=== PATIENT | female | born 1950 | race Caucasian/White ===

== ENCOUNTER → 2017-01-02 | Outpatient (CLI) | payer MEDICARE, BC ==
[~2017-01-02] MED LIST: ESTR.3
--- NOTE | 2017-01-04 12:40 | RSPPFT ---
DATE OF PROCEDURE: 01/02/17 COMMENTS: Spirometry with FVC of 3.0, FEV1 of 2.2, FEV1/FVC ratio at 74%. A positive but non-significant response to acutely inhaled bronchodilator noted. Slow vital capacity is 100% of predicted. TLC is 100%. Diffusion capacity is 73% of predicted and normal when corrected for alveolar volume. IMPRESSION: 1. Moderate airways obstruction. 2. Non-significant response to acutely inhaled bronchodilator. 3. Mild reduction in diffusion capacity.
== END ==
LOC: HRSP 10:29
PROVIDERS: ATTEND Internal Medicine Cardiovascular Disease
DX: R06.02 Shortness of breath (principal)
CPT/HCPCS: 94060; 94726; 94729

== ENCOUNTER → 2017-04-28 | Outpatient (CLI) | payer MEDICARE, BC ==
--- NOTE | 2017-05-01 12:57 | CARDEX ---
CARDIOPULMONARY EXERCISE REPORT Ms. Edmond performed a maximal pulmonary stress test utilizing a step-exercise protocol monitoring several cardiopulmonary parameters including gas exchange. Her overall work capacity is normal at 99%. Her VO2 max was 99% of predicted and with an excellent effort, she achieved an "R" value of 1.06. Her ventilatory parameters were normal. The O2 Saturation did not fall significantly and her respiratory reserve was 48%, certainly adequate. She did develop dyspnea during this study, not unexpected given the work that she completed. Her cardiovascular response was also normal. Her blood pressure at rest was 120/70 and judith to 170/65 and 5-minutes post-exercise was 130/70. Her end-tidal CO2 response to exercise was very normal with a rise of 7.8 with normal being greater than 4. She achieved 85% of her predicted maximum heart rate and her peak O2 pulse, an indirect indicator of stroke volume, was normal. She had no chest pain or light-headedness. IMPRESSION: In summary, Ms. Edmond has a normal pulmonary stress test having achieved a normal VO2 max without significant cardiac or pulmonary limitation. cc: Dr. Jed Valdez
== END ==
LOC: HRSP 12:55
PROVIDERS: ATTEND Internal Medicine
DX: R06.02 Shortness of breath (principal)
CPT/HCPCS: 94621